=== PATIENT | male | born 1940 | race African-American/Black ===

== ENCOUNTER 2016-08-26 06:40 | Observation (INO) | payer MEDICARE ==
[~2016-08-26] VITALS: Ht 182.9 cm; Wt 83.4 kg
[2016-08-26] VITALS (8 sets, daily range): BP systolic 122–162; BP diastolic 72–92; PULSE 58–70; RESP 16–26; O2SAT 95–99
[~2016-08-26 06:40] MED LIST: AMLO5TAB2 PO; ATORVASTATIN PO; CIPR-231 PO; CYAN500 PO; CYAN500T PO; DONE10TA5 PO; DUTA0.5C PO; FINA5TAB9 PO; NAM10 PO; PLAVIX (*) 75 M75 MG PO; TRIA15CR TP; ZES20T PO; [UNRECOGNIZED DRUG - CODE] PO
--- NOTE | 2016-08-26 06:55 | ED.REPORT ---
HPI-Stroke / CVA August 26, 2016 ED Provider: Tanner Guardado MD A pleasant 75 year old right hand dominant male with a history of CVA in 2012 presents to the ER accompanied by his complaining of right arm pain onset yesterday while at a CPR training class. Pain is localized in the upper arm. He states that the pain is positional, and he endorses weakness of the right arm. Patient denies other areas of pain, headache, vision changes, chest pain, shortness of breath, and facial numbness/weakness. Upon further questioning he admits that he was struck on the head by a piece of a swing set that he was assembling. His previous stroke presented with severe headache, and left him with residual deficits in his left peripheral field of vision. Nursing Notes Stated Complaint: PAIN/WEAKNESS IN RIGHT ARM Chief Complaint: Neuro Symptoms/ Deficits Nursing Notes Reviewed: Yes Allergies: Coded Allergies: No Known Allergies (Verified Allergy, Unknown, 08/26/16) Scheduled Amlodipine (Amlodipine) 5 Mg Tablet 5 MG PO DAILY (Reported) Atorvastatin (Lipitor) 40 Mg Tablet 40 MG PO HS (Reported) Cholecalciferol (Vitamin D3) (Vitamin D3) 1,000 Unit Tab.chew 1,000 UNIT PO BID (Reported) Ciprofloxacin (Cipro) 500 Mg Tablet 500 MG PO BID (Reported) Clopidogrel (Clopidogrel) 75 Mg Tablet 75 MG PO DAILY (Reported) Cyanocobalamin (Vitamin B12) 500 Mcg Tablet 500 MCG PO DAILY (Reported) Donepezil (Aricept) 10 Mg Tablet 10 MG PO HS (Reported) Dutasteride (Dutasteride) 0.5 Mg Capsule 0.5 MG PO DAILY (Reported) Finasteride (Finasteride) 5 Mg Tablet 5 MG PO DAILY (Reported) Lisinopril (Lisinopril) 40 Mg Tablet 40 MG PO DAILY (Reported) Memantine (Namenda) 10 Mg Tablet 10 MG PO BID (Reported) General Time Seen by Provider: 06:53 Chief Complaint Other (Right Arm Pain) Hx Obtained From: Patient Arrived By: Walk-in Time last known well 09:45 yesterday Sudden in Onset?: No Symptom Duration: Since onset Progression Since Onset: Gradually improving Location: : Arm Quality: Painful Radiation: Does not radiate Severity: Current: Mild Severity: Maximum: Moderate Pertinent Negative: Pt denies other symptoms Context Related History: Reports: Cerebrovascular accident Similar Sx Previous: No Risk Factors )( TPA Administration/Criteria Stroke Thrombolytic Therapy : TPA Considered: No Neurologist Contacted: Yes TPA Administered Intravenously: No, exclusion criteria NIH Stroke Scale Level of Consciousness: Alert and responsive (0) Ask Month & Age: Both questions right (0) Open/Close Eyes/Hand Stogy Maker: Performs both tasks (0) Horizontal EO Movements: None (0) Visual Do: No visual loss (0) Facial Palsy: Normal symmetry (0) Right Arm Motor Drift (10s): No drift 10 sec (0) Left Arm Motor Drift (10s): No drift 10 sec (0) Right Leg Motor Drift (5s): No drift 5 sec (0) Left Leg Motor Drift (5s): No drift 5 sec (0) Limb Ataxia FNF/Heel-Edmond: No ataxia (0) Sensation (Arms/Legs/Face): Pinprick less sharp (1) (Right Arm and Leg) Language Aphasia: No aphasia, normal (0) Dysarthria: No dysarthria, normal (0) Extinction/Inattention: No exctinct/inattent (0) NIHSS Score: 1 Time NIHSS Performed: 07:05 Date NIHSS Performed: August 26, 2016 Past Medical History Past Medical History Denies [place] Reports: Cancer (Prostate), Hypertension, Stroke, Denies: Diabetes mellitus Denies: Kidney disease, Pancreatitis Past Surgical History Denies: Cholecystectomy Smoking History Former Smoker Social History Other Social History: Good social support, Ambulatory Status Independent Review of Systems Constitutional: Denies: Fever Respiratory: Denies: Non-productive cough, Shortness of breath Cardiovascular: Denies: Chest pain Musculoskeletal: Reports: Extremity pain (Right Arm), Denies: Back pain, Joint pain, Lumbar pain, Neck pain, Thoracic pain Neurologic: Reports: Focal weakness, Denies: Change LOC, Dizziness, Headache, Numbness, Slurred speech, Syncope, Vision change Complete sys rev & neg: except as marked. Physical Exam Initial Vital Signs Vital Signs (First) Date Time Temp Pulse Resp B/P Pulse Ox O2 Delivery O2 Flow Rate FiO2 08/26/16 06:43 36.2 66 26 157/92 99 Room Air Initial VS: Reviewed Abdomen / GI: Soft, Non-tender, No guarding, No rebound, No distention Extremities: Vascular intact, Neuro intact, No swelling, No tenderness Skin: Warm, Dry, No cyanosis Psychiatric: Mood/affect normal, Behavior normal, Normal thought content General/Constitutional: Awake, Alert, Well developed, Well nourished Head / Eyes: Normocephalic, PERRL, EOMI Neck: Supple, Full range of motion, No swelling, Non-tender, No carotid bruit Respiratory / Chest: Breath sounds NL, Breath sounds = bilat, No respiratory distress, No rales, No rhonchi, No wheezing Cardiovascular: Heart rate NL, Regular rhythm, Heart sounds NL, No murmurs, Peripheral circulation NL Neurologic: Oriented X3, Speech NL, No motor deficits, No sensory deficits, CN II - XII intact See NIH Stroke Scale in the Risk section of this note. Interpretation & Diagnostics Lab Results Interpretation Result Diagram: 08/26/16 0750 08/26/16 0750 Test 08/26/16 07:50 08/26/16 08:05 White Blood Count 5.9th/mm3 (3.8-10.1) Red Blood Count 4.76mil/mm3 (4.40-5.80) Hemoglobin 14.3g/dL (13.8-17.2) Hematocrit 41.8% (41.0-50.0) Mean Corpuscular Volume 87.8fL (81-100) Mean Corpuscular Hemoglobin 30.0pg (27.0-35.0) Mean Corpuscular Hemoglobin Concent 34.2% (32.0-37.0) Red Cell Distribution Width 13.6% (12.3-15.4) Platelet Count 195bil/L (150-400) Neutrophils (%) (Auto) 66.8% (40-74) Lymphocytes (%) (Auto) 22.3% (14-46) Monocytes (%) (Auto) 9.0% (4-12) Eosinophils (%) (Auto) 1.5% (0-5) Basophils (%) (Auto) 0.2% (0-3) Sodium Level 145mEq/L (134-144) Potassium Level 4.3mEq/L (3.5-5.2) Chloride Level 105mEq/L (97-108) Carbon Dioxide Level 25mmol/L (18-29) Blood Urea Nitrogen 14mg/dL (8-27) Creatinine 0.85mg/dL (0.76-1.27) Estimat Glomerular Filtration Rate 93mL/min (>59) Glucose Level 107mg/dL (60-99) Calcium Level 9.2mg/dL (8.5-10.1) Total Bilirubin 0.7mg/dL (0.0-1.2) Aspartate Amino Transf (AST/SGOT) 21U/L (0-50) Alanine Aminotransferase (ALT/SGPT) 12U/L (0-44) Alkaline Phosphatase 143U/L (25-160) Troponin T 0.010ug/L (0.0-0.011) Total Protein 7.4g/dL (6.4-8.4) Albumin 3.9g/dL (3.4-5.0) Hold Hobbs Top Tube Received (Received) Urine Color Straw (YELLOW) Urine Appearance Clear (CLEAR,HAZY) Urine pH 6.5 (5.0-8.0) Urine Specific [place] 1.010 (1.003-1.035) Urine Protein Negativemg/dL (NEG,TRACE) Urine Glucose (UA) Negativemg/dL (NEGATIVE) Urine Ketones Negativemg/dL (NEGATIVE) Urine Occult Blood Negative (NEGATIVE) Urine Nitrite Negative (NEGATIVE) Urine Bilirubin Negative (NEGATIVE) Urine Urobilinogen Normalmg/dL (NORMAL) Urine Leukocyte Esterase Negative (NEGATIVE) Urine RBC 0-2/hpf (0-2) Urine WBC 0-5/hpf (0-5) Urine Epithelial Cells Occasional/hpf (NONE-MOD) Urine Crystals None seen (NONE SEEN) Urine Bacteria None/hpf (NONE-FEW) Urine Hyaline Casts None/lpf (NONE) Urine Granular Casts None seen (NONE SEEN) Urine Waxy Casts None seen (NONE SEEN) Urine Red Blood Cell Casts None seen (NONE SEEN) Urine White Blood Cell Casts None seen (NONE SEEN) Urine Mucus None seen (None Seen) Urine Trichomonas None seen (NONE SEEN) Urine Yeast None (NONE SEEN) Urinalysis Comment None Urine Culture Reflexed Not indicated ECG Interpretation ECG Interpretation: Sinus rhythm, rate 63 Time: 07:40 Interpreted by: ED physician CT Head Interpretation IMPRESSION: 1. No acute intracranial abnormalities. 2. Old right frontal infarct with encephalomalacia. 3. Cerebral volume loss and chronic microvascular ischemic changes. Dictated by: Marlene Levine M.D. on 08/26/2016 at 7:51 Approved by: Marlene Levine M.D. on 08/26/2016 at 7:54 Study: Head CT no contrast Interpretation / Wet Read by: Interpret - Radiologist Re-Eval/Medical Decision Med Decision/Clinical Course June 13, 2012 Head MRI revealed questionable aneurysm on the right. Head CTA later that day showed no indication of right side aneurysm. Re-Evaluation/Progress : Time of Eval: 07:20 Re-Evaluation/Progress Note: Discussed physical examination findings, need for futher testing, and need for admission pending lab and imaging results. Patient is amenable to the plan. All other questions addressed. Consultation : Referral / Consult Name: John Walsh Consulted With: Hospitalist Call Returned at: 09:25 Switchboard Operator Receptionist: Agrees with eval, Agrees with plan, Accepts admit Counseled Regarding: Diagnosis, Lab results, Need for admission Patient Discharge & Departure Impression: Primary Impression: CVA (cerebral vascular accident) Disposition: ADMITTED TO HOSPITAL Discharge Condition All VS Reviewed: Yes Condition: Stable Referrals: Francoise Rodríguez MD (PCP) Scribe Attestation Portions of this note were transcribed by Domi Shetty. I, Dr. Guardado, personally performed the history, physical exam and medical decision-making; I reviewed and confirmed the accuracy of the information in the transcribed note. Signed by: Aisha Lal, 08/26/2016 and 09:26 copies to: Francoise Rodríguez MD, Kirk H MD August 26, 2016 06:55 DOMI SHETTY August 26, 2016 07:05 DOMI SHETTY August 26, 2016 07:05
--- NOTE | 2016-08-26 07:56 | DRSVH ---
PROCEDURE: CT BRAIN WITHOUT CONTRAST ([id number]) INDICATIONS: Right arm/leg numbness TECHNIQUE: Noncontrast 4.5 mm thick angled axial sections acquired from the foramen magnum to the vertex, with c oronal reformats. COMPARISON: [facility], MR, STROKE PROTOCOL (PNL), 06/13/2012, 11:16. [facility], CT, BRAIN W/O CONTRAST, 06/13/2012, 9:31. FINDINGS: Image quality: Excellent. CSF spaces: Basal cisterns are patent. No extra-axial fluid collections. The ventricles are symmet stanley in size and shape. Brain: There is an old infarct in the right parietal lobe with encephalomalacia. No intracranial ble eds or masses. There is cerebral volume loss for age, with resultant ventricular and sulcal prominen ce. There are periventricular and deep white matter chronic small vessel ischemic changes. There is intracranial internal carotid artery atherosclerosis. Skull and face: Calvarium and visualized facial bones appear intact, without suspicious lesions. Sinuses: Visualized sinuses and mastoids are clear. IMPRESSION: 1. No acute intracranial abnormalities. 2. Old right frontal infarct with encephalomalacia. 3. Cerebral volume loss and chronic microvascular ischemic changes. Dictated by: Marlene Levine M.D. on 08/26/2016 at 7:51 Approved by: Marlene Levine M.D. on 08/26/2016 at 7:54
[2016-08-26 08:10] LABS: BASOPHILS % (AUTO) 0.2 % (0-3); EOSINOPHILS % (AUTO) 1.5 % (0-5); Mean Corpuscular Volume 87.8 fL (81-100); NEUTROPHILS % (AUTO) 66.8 % (40-74); Platelet Count 195 bil/L (150-400)
[2016-08-26] MEDS ORDERED: LIP40 PO (08:13)
[2016-08-26] MEDS ORDERED: CHOL10008 PO (08:14)
[2016-08-26] MEDS ORDERED: CLOP75TA28 PO (08:17)
[2016-08-26] MEDS ORDERED: DUTA0.5C16 PO (08:19)
[2016-08-26] MEDS ORDERED: LISI40TA PO (08:20)
[2016-08-26 08:27] LABS: APPEARANCE,URINE CLEAR (CLEAR,HAZY); COLOR,URINE STRAW (YELLOW); OCCULT BLOOD,URINE NEGATIVE (NEGATIVE); PH,URINE 6.5 (5.0-8.0); UROBILINOGEN,URINE NORMAL (NORMAL)
[2016-08-26 08:34] LABS: TROPONIN T 0.01 ug/L (0.0-0.011)
[2016-08-26] MEDS ORDERED: Alum-Mag Hydrox-Simeth 30 mL Suspension PO PRN ×2 (09:30→16:15)
[2016-08-26] MEDS ORDERED: Ondansetron 2 mg/mL 2 mL Inj IVPUSH PRN ×2 (09:30→16:15)
--- NOTE | 2016-08-26 15:26 | DRSVH ---
PROCEDURE: MRI STROKE PROTOCOL ([id number]) Pre- and post-contrast brain MRI, non-contrast brain MR angiogram, pre- and postcontrast neck MR felton ogram INDICATIONS: Right side numbness TECHNIQUE: Brain: Noncontrast axial T1 spin echo, axial T2 fast spin echo, sagittal and axial FLAIR, coronal T2 fast spin echo, axial gradient echo, axial diffusion and ADC through the brain. After the administr ation of contrast, axial 3D VIBE of the cranial vasculature and brain. Brain MRA: Non-contrast 3-D time of flight MR angiogram, with multiple seodgjo-pnfdtlqvf-suppigzmei (MIP) reformats performed. Neck MRA: Axial and sagittal TruFISP through the neck. Coronal dynamic MR angiogram during administ ration of contrast in the arterial and venous phases, with 3-dimenstional xxdjhzk-mqmvkljrm-nqruezyde n (MIP) reformats constructed from subtraction images. COMPARISON: [facility], CT, ANGIO BRAIN W&W/O CONT., 06/13/2012, 20:01. [facility], MR, STROKE PROTOCOL ([facility]), 06/13/2012, 11:16. FINDINGS: Image quality: Excellent. BRAIN: CSF spaces: Ventricles are normal in size and shape. Basal cisterns are patent. No extra-axial flu id collections. Brain: No intracranial bleeds or mass effects. Scattered white matter signal changes, which are nons pecific although statistically represent chronic microvascular ischemic disease. Chronic medial right occipital lobe encephalomalacia as before and Michelle-white matter interface is normal. Diffusion ana ghted images show no acute ischemic insults. Brainstem appears normal. Normal intravascular flow vo ids are present. No abnormal intracranial enhancement. Skull and face: Calvarial marrow signal is normal. Orbits appear normal. Sinuses: Sinuses and mastoids are clear. BRAIN MR ANGIOGRAM: Anterior circulation: Intracranial internal carotid arteries are normal in size and enhancement. Th e flow within the paired anterior cerebral arteries is normal and symmetric. The flow within the mid dle cerebral arteries is normal and symmetric. The anterior communicating artery is seen. No stenos es, occlusions, or aneurysms. Posterior circulation: The visualized portions of the vertebral arteries demonstrate normal caliber, and join to form a normal appearing basilar artery. The flow within the posterior cerebral arteries is normal and symmetric. No stenoses, occlusions, or aneurysms. NECK MR ANGIOGRAM: Carotids: Great vessels demonstrate a conventional anatomy as they arise from the aortic arch. The origins of the common carotid arteries appear patent. The calibers and courses of both common caroti d arteries are normal. The bifurcation regions appear normal bilaterally. The internal carotid tony helga demonstrate normal course and caliber. Posterior circulation: The origins of the vertebral arteries appear patent. More superior portions of both vertebral arteries demonstrate normal course and caliber, and join to form a normal appearing basilar artery. Miscellaneous: Subclavian arteries appear patent. Pre-contrast images through the neck show no soft tissue abnormalities. IMPRESSION: BRAIN MRI: No evidence of acute ischemia. Unchanged medial right occipital lobe encephalomalacia Diffuse bilateral white matter signal changes suspicious for representing chronic microvascular ische angelina disease. BRAIN MR ANGIOGRAM: No evidence of occlusion or stenosis NECK MR ANGIOGRAM: Negative examination. No ICA stenosis. The estimate of stenosis included in the report of the imaging study was calculated using the NASCET method Dictated by: Eduardo Becerra M.D. on 08/26/2016 at 15:15 Approved by: Eduardo Becerra M.D. on 08/26/2016 at 15:24
[2016-08-26] MEDS ORDERED: Polyethylene Glycol (PEG) 17 Gm Powder PO PRN (16:15)
[2016-08-26] MEDS ORDERED: Labetalol 5 mg/mL 4 mL Inj IVPUSH PRN (16:15)
[2016-08-26] MEDS ORDERED: Heparin 5,000 Unit/mL Inj SUBQ SCH (16:30)
--- NOTE | 2016-08-26 16:59 | PCM.HPMED ---
Subjective Date of Service August 26, 2016 Primary Provider: Admitting Physician: John Walsh Primary Care Physician: Francoise Rodríguez MD Attending Physician: John Walsh Chief Complaint: right arm pain and weakness History of Present Illness: 75-year-old, , right-handed male with past medical history notable for prior ischemic CVA in 2012 with residual left visual field defect presents today with report of right arm pain and some weakness first noticed yesterday during a CPR class. He says that the right arm pain only occurs in certain positions and with movement and he notices the right arm weakness when trying to really exert the right arm but otherwise with low intensity movement seems to be fine. Given his prior history of CVA he became concerned and presented to ED for further evaluation. He otherwise denies any other new issues/complaints/signs/symptoms. Review of Systems: Constitutional: Negative, except as otherwise mentioned in the history above. Ophthalmologic: Negative, except as otherwise mentioned in the history above. Cardiovascular: Negative, except as otherwise mentioned in the history above. Respiratory: Negative, except as otherwise mentioned in the history above. Gastrointestinal: Negative, except as otherwise mentioned in the history above. Genitourinary: Negative, except as otherwise mentioned in the history above. Musculoskeletal: Negative, except as otherwise mentioned in the history above. Neurological: Negative, except as otherwise mentioned in the history above. Psychiatric: Negative, except as otherwise mentioned in the history above. Hematologic/Lymphatic: Negative, except as otherwise mentioned in the history above. Allergic/Immunologic: Negative, except as otherwise mentioned in the history above. Allergies Coded Allergies: No Known Allergies (Verified Allergy, Unknown, 08/26/16) Home Medications Ciprofloxacin 500 Mg Tablet (Cipro) 500 Mg PO BID Donepezil 10 Mg Tablet (Aricept) 10 Mg PO HS Clopidogrel 75 Mg Tablet 75 Mg PO DAILY Amlodipine 5 Mg Tablet 5 Mg PO DAILY Atorvastatin 40 Mg Tablet (Lipitor) 40 Mg PO HS Lisinopril 40 Mg Tablet 40 Mg PO DAILY 30 Days Memantine 10 Mg Tablet (Namenda) 10 Mg PO BID 30 Days Cyanocobalamin 500 Mcg Tablet (Vitamin B12) 500 Mcg PO DAILY Dutasteride 0.5 Mg Capsule 0.5 Mg PO DAILY Finasteride 5 Mg Tablet 5 Mg PO DAILY 30 Days Ref 0 Exam Vital Signs & I/O Vital Sign- Last 8 Hours Date Time Temp Pulse Resp B/P Pulse Ox O2 Delivery O2 Flow Rate FiO2 08/26/16 14:03 36.8 58 18 122/75 95 Room Air 08/26/16 10:59 64 08/26/16 10:29 36.5 65 18 162/82 98 Room Air 08/26/16 10:18 70 08/26/16 10:03 36.6 60 16 146/72 98 Room Air Lab & Micro Results Laboratory Tests Test 08/26/16 07:50 08/26/16 08:05 White Blood Count 5.9th/mm3 (3.8-10.1) Red Blood Count 4.76mil/mm3 (4.40-5.80) Hemoglobin 14.3g/dL (13.8-17.2) Hematocrit 41.8% (41.0-50.0) Mean Corpuscular Volume 87.8fL (81-100) Mean Corpuscular Hemoglobin 30.0pg (27.0-35.0) Mean Corpuscular Hemoglobin Concent 34.2% (32.0-37.0) Red Cell Distribution Width 13.6% (12.3-15.4) Platelet Count 195bil/L (150-400) Neutrophils (%) (Auto) 66.8% (40-74) Lymphocytes (%) (Auto) 22.3% (14-46) Monocytes (%) (Auto) 9.0% (4-12) Eosinophils (%) (Auto) 1.5% (0-5) Basophils (%) (Auto) 0.2% (0-3) Sodium Level 145mEq/L (134-144) Potassium Level 4.3mEq/L (3.5-5.2) Chloride Level 105mEq/L (97-108) Carbon Dioxide Level 25mmol/L (18-29) Blood Urea Nitrogen 14mg/dL (8-27) Creatinine 0.85mg/dL (0.76-1.27) Estimat Glomerular Filtration Rate 93mL/min (>59) Glucose Level 107mg/dL (60-99) Calcium Level 9.2mg/dL (8.5-10.1) Total Bilirubin 0.7mg/dL (0.0-1.2) Aspartate Amino Transf (AST/SGOT) 21U/L (0-50) Alanine Aminotransferase (ALT/SGPT) 12U/L (0-44) Alkaline Phosphatase 143U/L (25-160) Troponin T 0.010ug/L (0.0-0.011) Total Protein 7.4g/dL (6.4-8.4) Albumin 3.9g/dL (3.4-5.0) Hold Hobbs Top Tube Received (Received) Urine Color Straw (YELLOW) Urine Appearance Clear (CLEAR,HAZY) Urine pH 6.5 (5.0-8.0) Urine Specific [place] 1.010 (1.003-1.035) Urine Protein Negativemg/dL (NEG,TRACE) Urine Glucose (UA) Negativemg/dL (NEGATIVE) Urine Ketones Negativemg/dL (NEGATIVE) Urine Occult Blood Negative (NEGATIVE) Urine Nitrite Negative (NEGATIVE) Urine Bilirubin Negative (NEGATIVE) Urine Urobilinogen Normalmg/dL (NORMAL) Urine Leukocyte Esterase Negative (NEGATIVE) Urine RBC 0-2/hpf (0-2) Urine WBC 0-5/hpf (0-5) Urine Epithelial Cells Occasional/hpf (NONE-MOD) Urine Crystals None seen (NONE SEEN) Urine Bacteria None/hpf (NONE-FEW) Urine Hyaline Casts None/lpf (NONE) Urine Granular Casts None seen (NONE SEEN) Urine Waxy Casts None seen (NONE SEEN) Urine Red Blood Cell Casts None seen (NONE SEEN) Urine White Blood Cell Casts None seen (NONE SEEN) Urine Mucus None seen (None Seen) Urine Trichomonas None seen (NONE SEEN) Urine Yeast None (NONE SEEN) Urinalysis Comment None Urine Culture Reflexed Not indicated Result Diagram: 08/26/16 0750 08/26/16 0750 PMH 1. 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 Hypertension. 3. Hyperlipidemia. 4. Benign prostatic hypertrophy. 5. Diabetes type 2, diet controlled. Family History Notable for mother with diabetes who lived into her 90's Social History Hx Alcohol Use: No (last drink was in 1978) Hx Substance Use: No Smoking Status: Former Smoker (quit in 1978) Exam Vital Signs Vital Sign - Last Date Time Temp Pulse Resp B/P Pulse Ox O2 Delivery O2 Flow Rate FiO2 08/26/16 14:03 36.8 58 18 122/75 95 Room Air Exam General: He is alert, oriented, no acute distress. Very pleasant, cooperative. HEENT: Pupils equal, round, reactive to light. Extraocular movements intact. Oropharynx is clear. Neck is supple. No lymphadenopathy. No thyromegaly. There is no facial asymmetry. Neck is supple. Lungs are clear. No crackles wheezes, or rhonchi. Heart is regular rate and rhythm without appreciable murmur. Abdomen is soft, nontender, nondistended. Positive bowel sounds, no masses. Extremities: No clubbing, cyanosis, or edema. Neuro exam: There is no pronator drift. Strength is 5/5 in upper extremity and lower extremity. Sensation is intact throughout. Cerebellar function is normal. Visual gold do show he has a left hemianopsia. Lab and Diagnostics Result Diagram: 08/26/1674908/26/16749 X-Rays, CTs and MRIs Date of Service: 08/26/16714 PROCEDURE: CT BRAIN WITHOUT CONTRAST ([id number]) IMPRESSION: 1. No acute intracranial abnormalities. 2. Old right frontal infarct with encephalomalacia. 3. Cerebral volume loss and chronic microvascular ischemic changes. Dictated by: Marlene Levine M.D. on 08/26/2016 at 7:51 Approved by: Marlene Levine M.D. on 08/26/2016 at 7:54 12-lead ECG NSR. 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 # Report of Acute right arm weakness, present on admission - On exam I do not appreciate any significant weakness in either extremity - Possible TIA although given report of pain with certain movement and position symptoms may likely be due to musculoskeletal process as opposed to neurological - Check MRI and echo - Continue with home meds for now - PT/OT consult # History of Hypertension - Permissive hypertension for now and if CVA ruled out will resume home meds # Hyperlipidemia - Will check fasting lipids in the morning - Continue with home dose Statin 4. Benign prostatic hypertrophy. - Continues Avodart. 5. Diabetes type 2. He - Check HgA1C - Will place him on sliding scale insulin at this time. Dispo: Likely home in am GI Prophylaxis: Not indicated Resuscitation Status: CPR: Attempt Resuscitation (discussed and verified with the patient.) Time spent 60 min John Walsh August 26, 2016 16:59
--- NOTE | 2016-08-26 17:08 | DRSVH ---
[facility] [address] [place] [address] Echocardiogram Report Name: VIANNEY HUBER JStudy Date: 08/26/2016 Height: 72 in Hospital Exam Location: [facility] Weight: 185 lb Gender: Male BSA: 2.1 m2 : 1940 Age: 75 yrs BP: 146/72 mmHg Reason For Study: CVA Ordering Physician: Performed By: Yolis Marmolejo Interpretation Summary The left ventricle is normal in size. Left ventricular systolic function is normal without focal wall motion abnormalities. The ejection fraction is estimated to be 60-65%. Assessment of diastolic parameters indicates a relaxation abnormality of the left ventricle, consistent with normal filling pressures. The right ventricle is normal in size and function. The right ventricular systolic pressure is estimated at 30 mmHg assuming a right atrial pressure of 3 mm Hg. Both atria are normal in size. There is mild aortic regurgitation. There is no other significant valvular heart disease. The aortic root is normal size. No obvious source for cardioembolic CVA/TIA. No significant changes since 06/14/2012. Procedure: A two-dimensional transthoracic echocardiogram with color flow and Doppler was performed. The study quality was technically good. Comparison is made with the echocardiogram of 06/14/2012. Patient was in sinus rhythm with a heart rate varying from 59-65 bpm. Left Ventricle: The left ventricle is normal in size. Left ventricular wall thickness is normal. Proximal septal thickening is noted. Left ventricular systolic function is normal without focal wall motion abnormalities. The ejection fraction is estimated to be 60-65%. Assessment of diastolic parameters indicates a relaxation abnormality of the left ventricle, consistent with normal filling pressures. Right Ventricle: The right ventricle is normal in size and function. Atria: Both atria are normal in size. Mitral Valve: The mitral valve is normal in structure and function. There is trace mitral regurgitation. Aortic Valve: The aortic valve is trileaflet. The aortic valve opens well. There is mild aortic regurgitation. Tricuspid Valve: The tricuspid valve is normal in structure and function. There is trace tricuspid regurgitation. The right ventricular systolic pressure is estimated at 30 mmHg assuming a right atrial pressure of 3 mm Hg. Pulmonic Valve: The pulmonic valve is normal in structure and function. There is trace pulmonic regurgitation. There is no other significant valvular heart disease. Great Vessels: The aortic root is normal size. The ascending aorta is normal in size. The IVC is of normal diameter and collapses greater than 50% with a sniff. This suggests a low right atrial pressure of 3 mm Hg. Pericardium/ Pleura There is no pericardial effusion. There is no pleural effusion. MMode/2D Measurements & Calculations LVIDd: 4.9 cm RA long axis LVOT diam LVIDs: 3.2 cm LA A2 area: 18.3 cm FS: 34.4 % LA A4 area: 22.6 cm RA area Ao root diam EPSS: 1.5 cm LA length (vol): 5.6 cm IVSd: 1.1 cm LA vol: 62.1 ml : 12.8 cm asc Aorta LVPWd: 1.0 cm LA vol index RA vol: 29.7 mlDiam: 3.4 cm RA : 30.2 ml/m2 : 14.4 mm2 LV hutson. diameter/BSA LV sys. diameter/BSA TAPSE: 2.4 cm (cm/m^2): 2.4 (cm/m^2): 1.5 Doppler Measurements & Calculations Ao V2 max MV E max yoel MV E/A: 0.79 TR max yoel : 113.6 cm/sec : 65.5 cm/sec Med Peak E' Yoel : 264.2 cm/sec Ao max P.2 mmHg MV A max yoel TR max PG Ao mean P.1 mmHg : 83.4 cm/sec E/E' med: 7.6 : 27.9 mmHg LVOT Max Yoel Lat Peak E' Yoel PA V2 max : 96.7 cm/sec : 48.6 cm/sec ELVIRA(I,D): 3.6 cm E/E' lat: 6.6 PA mean PG sev ratio: 0.86 E/e' average: 7.1 : 0.53 mmHg MV dec time: 0.20 sec Ao V2 mean LV V1 max PG PA V2 mean : 85.5 cm/sec : 35.0 cm/sec Ao V2 VTI LV V1 VTI: 22.4 cm PA pr(Accel) : 26.3 mmHg ELVIRA(V,D): 3.6 cm2 ELVIRA indexed to BSA (cm^2/m^2): 1.7 Reading Physician:SNHEA
--- NOTE | 2016-08-26 17:53 | PCM.DIMED ---
Discharge Instructions Date of Service August 26, 2016 Dates of Hospitalization August 26, 2016 at 09:06 Discharge Diagnosis Discharge Diagnosis # Report of Acute right arm weakness, present on admission - Possible transient ischemic attack (TIA) although symptoms seem more likely due to musculoskeletal process as opposed to neurological - Acute stroke ruled out with negative MRI of brain # History of Hypertension. stable. # Hyperlipidemia # Benign prostatic hypertrophy. # History of borderline diabetes type 2 # Mild dementia Medication Instructions Additional med instructions Resume your home medications as before Diet Discharge Diet: Low fat, Low Sodium, Heart Healthy, Diabetic Activity Discharge Activity: No restrictions Call your provider Call your provider for: Fever or Chills, Shortness of breath, Chest pain, Weakness (unilateral) Patient Instructions Patient Instructions Seek immediate medical attention if any new or worsening signs or symptoms occur. Follow-up plan 1. Followup with primary care provider in 1-2 weeks Follow-up Provider: Francoise Rodríguez MD, Masoud August 26, 2016 17:53
--- NOTE | 2016-08-26 17:57 | PCM.DC.MED ---
Discharge Summary Date of Service August 26, 2016 Dates of Hospitalization Date of Hospital Admission August 26, 2016 at 09:06 Date of Discharge: August 26, 2016 Providers: Admitting Physician: John Walsh Primary Care Physician: Francoise Rodríguez MD Attending Physician: John Walsh Diagnosis at Time of Discharge Diagnosis at Time of Discharge # Report of Acute right arm weakness, present on admission - Possible transient ischemic attack (TIA) although symptoms seem more likely due to musculoskeletal process as opposed to neurological - Acute stroke ruled out with negative MRI of brain # History of Hypertension. stable. # Hyperlipidemia # Benign prostatic hypertrophy. # History of borderline diabetes type 2 # Mild dementia Procedures XRay, CTs & MRIs Date of Service: 08/26/16 0715 PROCEDURE: CT BRAIN WITHOUT CONTRAST ([id number]) IMPRESSION: 1. No acute intracranial abnormalities. 2. Old right frontal infarct with encephalomalacia. 3. Cerebral volume loss and chronic microvascular ischemic changes. Dictated by: Marlene Levine M.D. on 08/26/2016 at 7:51 Approved by: Marlene Levine M.D. on 08/26/2016 at 7:54 Date of Service: 08/26/16 0926 PROCEDURE: MRI STROKE PROTOCOL ([id number]) Pre- and post-contrast brain MRI, non-contrast brain MR angiogram, pre- and postcontrast neck MR angiogram IMPRESSION: BRAIN MRI: No evidence of acute ischemia. Unchanged medial right occipital lobe encephalomalacia Diffuse bilateral white matter signal changes suspicious for representing chronic microvascular ischemic disease. BRAIN MR ANGIOGRAM: No evidence of occlusion or stenosis NECK MR ANGIOGRAM: Negative examination. No ICA stenosis. The estimate of stenosis included in the report of the imaging study was calculated using the NASCET method Dictated by: Eduardo Becerra M.D. on 08/26/2016 at 15:15 Approved by: Eduardo Becerra M.D. on 08/26/2016 at 15:24 ECG [address] 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 He says that the right arm pain only occurs in certain positions and with movement and he notices the right arm weakness when trying to really exert the right arm but otherwise with low intensity movement seems to be fine. Given his prior history of CVA he became concerned and presented to ED for further evaluation. He otherwise denies any other new issues/complaints/signs/symptoms. Hospital Course # Report of Acute right arm weakness, present on admission - On exam I do not appreciate any significant weakness in either extremity - Possible TIA although given report of pain with certain movement and position symptoms may likely be due to musculoskeletal process as opposed to neurological - no acute finding on MRI and echo (as noted above) - Patient reports in hindsight he had been doing some assembly earlier in the week and thinks may have overused his arm during that time. Notes complete resolution of symptoms at this time and requesting d/c home. # History of Hypertension - resume home meds # Hyperlipidemia - check fasting lipids as outpatient - Continue with home dose Statin # Benign prostatic hypertrophy. - Continues Avodart. # Borderline Diabetes type 2. - Followup pending HgA1C by PCP as outpatient Exam Vital Signs (Last) Date Time Temp Pulse Resp B/P Pulse Ox O2 Delivery O2 Flow Rate FiO2 08/26/16 17:02 36.9 58 18 142/83 96 Room Air Test 08/26/16 07:50 08/26/16 08:05 White Blood Count 5.9th/mm3 (3.8-10.1) Red Blood Count 4.76mil/mm3 (4.40-5.80) Hemoglobin 14.3g/dL (13.8-17.2) Hematocrit 41.8% (41.0-50.0) Mean Corpuscular Volume 87.8fL (81-100) Mean Corpuscular Hemoglobin 30.0pg (27.0-35.0) Mean Corpuscular Hemoglobin Concent 34.2% (32.0-37.0) Red Cell Distribution Width 13.6% (12.3-15.4) Platelet Count 195bil/L (150-400) Neutrophils (%) (Auto) 66.8% (40-74) Lymphocytes (%) (Auto) 22.3% (14-46) Monocytes (%) (Auto) 9.0% (4-12) Eosinophils (%) (Auto) 1.5% (0-5) Basophils (%) (Auto) 0.2% (0-3) Sodium Level 145mEq/L (134-144) Potassium Level 4.3mEq/L (3.5-5.2) Chloride Level 105mEq/L (97-108) Carbon Dioxide Level 25mmol/L (18-29) Blood Urea Nitrogen 14mg/dL (8-27) Creatinine 0.85mg/dL (0.76-1.27) Estimat Glomerular Filtration Rate 93mL/min (>59) Glucose Level 107mg/dL (60-99) Calcium Level 9.2mg/dL (8.5-10.1) Total Bilirubin 0.7mg/dL (0.0-1.2) Aspartate Amino Transf (AST/SGOT) 21U/L (0-50) Alanine Aminotransferase (ALT/SGPT) 12U/L (0-44) Alkaline Phosphatase 143U/L (25-160) Troponin T 0.010ug/L (0.0-0.011) Total Protein 7.4g/dL (6.4-8.4) Albumin 3.9g/dL (3.4-5.0) Hold Hobbs Top Tube Received (Received) Urine Color Straw (YELLOW) Urine Appearance Clear (CLEAR,HAZY) Urine pH 6.5 (5.0-8.0) Urine Specific [place] 1.010 (1.003-1.035) Urine Protein Negativemg/dL (NEG,TRACE) Urine Glucose (UA) Negativemg/dL (NEGATIVE) Urine Ketones Negativemg/dL (NEGATIVE) Urine Occult Blood Negative (NEGATIVE) Urine Nitrite Negative (NEGATIVE) Urine Bilirubin Negative (NEGATIVE) Urine Urobilinogen Normalmg/dL (NORMAL) Urine Leukocyte Esterase Negative (NEGATIVE) Urine RBC 0-2/hpf (0-2) Urine WBC 0-5/hpf (0-5) Urine Epithelial Cells Occasional/hpf (NONE-MOD) Urine Crystals None seen (NONE SEEN) Urine Bacteria None/hpf (NONE-FEW) Urine Hyaline Casts None/lpf (NONE) Urine Granular Casts None seen (NONE SEEN) Urine Waxy Casts None seen (NONE SEEN) Urine Red Blood Cell Casts None seen (NONE SEEN) Urine White Blood Cell Casts None seen (NONE SEEN) Urine Mucus None seen (None Seen) Urine Trichomonas None seen (NONE SEEN) Urine Yeast None (NONE SEEN) Urinalysis Comment None Urine Culture Reflexed Not indicated Discharge Medications Discharge Medications Amlodipine (Amlodipine) 5 Mg Tablet 5 MG PO DAILY (Reported) Atorvastatin (Lipitor) 40 Mg Tablet 40 MG PO HS (Reported) Cholecalciferol (Vitamin D3) (Vitamin D3) 1,000 Unit Tab.chew 1,000 UNIT PO BID (Reported) Clopidogrel (Clopidogrel) 75 Mg Tablet 75 MG PO DAILY (Reported) Cyanocobalamin (Vitamin B12) 500 Mcg Tablet 500 MCG PO DAILY (Reported) Donepezil (Aricept) 10 Mg Tablet 10 MG PO HS (Reported) Dutasteride (Dutasteride) 0.5 Mg Capsule 0.5 MG PO DAILY (Reported) Finasteride (Finasteride) 5 Mg Tablet 5 MG PO DAILY (Reported) Lisinopril (Lisinopril) 40 Mg Tablet 40 MG PO DAILY (Reported) Memantine (Namenda) 10 Mg Tablet 10 MG PO BID (Reported) Additional med instructions Resume your home medications as before Followup Plan Disposition: Home Follow-up plan 1. Followup with primary care provider in 1-2 weeks Discharge Diet: Low fat, Low Sodium, Heart Healthy, Diabetic Discharge Activity: No restrictions Patient Instructions Seek immediate medical attention if any new or worsening signs or symptoms occur. Follow-up Provider: Francoise Rodríguez MD Time spent 30 min copies to: Francoise Rodríguez MD, Masoud August 26, 2016 17:57
== END 2016-08-26 18:18 | disposition home or self-care (01) ==
LOC: SED 06:40 → MPC 09:06
PROVIDERS: ADMIT Internal Medicine; ATTEND Internal Medicine
DX: R53.1 Weakness (principal); I63.8 Other cerebral infarction; H53.8 Other visual disturbances; I10 Essential (primary) hypertension; E78.5 Hyperlipidemia, unspecified; N40.0 Benign prostatic hyperplasia without lower urinary tract symptoms; E11.9 Type 2 diabetes mellitus without complications; F03.90 Unspecified dementia, unspecified severity, without behavioral disturbance, psychotic disturbance, mood disturbance, and anxiety; Z87.891 Personal history of nicotine dependence
CPT/HCPCS: 36415; 70450; 70549; 70553; 80053; 81000; 83036; 84484; 85025; 92610; 93005; 99285; A9585; C8929; G0378; G8996; G8997; G8998; J1644

== ENCOUNTER 2016-11-12 07:10 | Day surgery (SDC) | payer MEDICARE ==
[~2016-11-12] VITALS: Ht 182.9 cm; Wt 77.1 kg
[~2016-11-12 07:10] MED LIST changes: -ATORVASTATIN PO; +CHOL10008 PO; -CIPR-231 PO; +CLOP75TA28 PO; -CYAN500T PO; -DUTA0.5C PO; +DUTA0.5C16 PO; +LIP40 PO; +LISI40TA PO; +Lactated Ringer's 1,000 ML IV ONE; -PLAVIX (*) 75 M75 MG PO; -TRIA15CR TP; -ZES20T PO; -[UNRECOGNIZED DRUG - CODE] PO
== END 2016-11-12 23:59 | disposition home or self-care (01) ==
LOC: END 07:10
PROVIDERS: ATTEND Surgery
DX: Z12.11 Encounter for screening for malignant neoplasm of colon (principal); I10 Essential (primary) hypertension; Z86.010 Personal history of colon polyps; Z79.02 Long term (current) use of antithrombotics/antiplatelets; Z79.899 Other long term (current) drug therapy; Z87.891 Personal history of nicotine dependence